=== PATIENT | male | born 1955 | race Caucasian/White ===

== ENCOUNTER 2018-03-04 08:29 | Emergency (ER) | payer MEDICAID ==
[~2018-03-04] VITALS: Ht 170.2 cm; Wt 90.0 kg
[2018-03-04] MEDS ORDERED: HYDROCODONE/ACETAMINOPHEN 5/325MG TABLET PO ONE (09:00)
[2018-03-04] MEDS ORDERED: TETANUS, DIPHTHERIA, PERTUSSIS VAC/PF 0.5ML (>7YR OLD) IM ONE (09:00)
[2018-03-04] MEDS ORDERED: ONDANSETRON 4MG ODT PO ONE (09:00)
[2018-03-04 11:35] VITALS: BP 141/101
== END 2018-03-04 11:43 | disposition home or self-care (01) ==
LOC: ER 08:29
DX: S81.811A Laceration without foreign body, right lower leg, initial encounter (principal); V13.4XXA Pedal cycle driver injured in collision with car, pick-up truck or van in traffic accident, initial encounter; Y93.55 Activity, bike riding; R03.0 Elevated blood-pressure reading, without diagnosis of hypertension; Y92.410 Unspecified street and highway as the place of occurrence of the external cause; Z23 Encounter for immunization; Z86.73 Personal history of transient ischemic attack (TIA), and cerebral infarction without residual deficits
CPT/HCPCS: 73590; 90471; 90715; 99284; Q0162; Z7610